=== PATIENT | male | born 1975 | race Hispanic/Latino ===

== ENCOUNTER 2019-01-25 09:07 | Outpatient (CLI) | payer MEDICARE | END 2019-01-25 09:08 | disposition home or self-care (01) | LOC: C.CTH 09:07 | DX: K40.91 Unilateral inguinal hernia, without obstruction or gangrene, recurrent (principal) ==

== ENCOUNTER 2019-01-30 08:23 | Day surgery (SDC) | payer MEDICARE ==
[2019-01-30] MEDS ORDERED: Bupivacaine 0.25% 20 ML INJ IJ ONE (11:07)
[2019-01-30] MEDS ORDERED: Midazolam 2 MG/2 ML VIAL ONE (11:08)
[2019-01-30] MEDS ORDERED: Lidocaine/Epinephrine 1% 1:100000 10 ML IJ ONE ×2 (11:08→11:52)
[2019-01-30] MEDS ORDERED: ceFAZolin 1 gm in NS 2 GM/200 ML BAG IVPB ONE (11:08)
[2019-01-30] MEDS ORDERED: Propofol 10 mg/ml Inj (20 ML) ONE (11:08)
[2019-01-30] MEDS ORDERED: Succinylcholine Chloride 20 mg/ml Syr (5 ml) IV ONE (11:08)
[2019-01-30] MEDS ORDERED: Rocuronium 10 mg/ml (5 ml) ONE ×2 (11:20→11:53)
[2019-01-30] MEDS ORDERED: Neostigmine 1:1000 (1 mg/ml) Inj ONE (12:05)
[2019-01-30] MEDS ORDERED: Esmolol 100 mg/10ml Inj IV ONE (12:55)
[2019-01-30] MEDS ORDERED: HYDROmorphone 0.5 mg/0.5 ml ISec IVP PRN (13:12)
[2019-01-30] MEDS ORDERED: Oxycodone/Acetaminophen 5/325 mg Tab PO PRN (13:12)
--- NOTE | 2019-01-30 13:12 | PCM.SURG1 ---
Surgeon's Initial Post Op Note - Surgeon's Notes Surgeon: Dr. Fritz Wilson Travel Clerk: Dr. Pascal PGY4, Aida COLEMAN Type of Anesthesia: General Endo, Local Pre-Operative Diagnosis: recurrent left inguinal hernia. umbilical hernia Operative Findings: intact prior direct inguinal hernia repair. indirect hernia, left. umbilical hernia 2cm Post-Operative Diagnosis: same Operation Performed: robotic assited left recurrent inguinal hernia repair with mesh. open primary umbilical hernia repair Specimen/Specimens Removed: inguinal preperitoneal fat. umbilical hernia contents Estimated Blood Loss: EBL {In ML}: 10 Blood Products Given: N/A Drains Used: No Drains Post-Op Condition: Good Date of Surgery/Procedure: 01/30/19 Time of Surgery/Procedure: 13:12
[2019-01-30 13:20] VITALS: BMI 38.4
[2019-01-30 15:14] VITALS: BP 133/74; PULSE 72; RESP 18; TEMP 98; O2SAT 100
--- NOTE | 2019-01-31 10:01 | PCM.OP ---
Operative Report - Operative Report Date of Surgery/Procedure: 01/30/19 Time of Surgery/Procedure: 11:15 Surgeon: Vlad Wilson MD Tactical Debriefer Officer: Rossana Pascal DO (PGY 4 resident); JARED Caal Anesthesia/Sedation: See main Pre-Operative Diagnosis: See main Post-Operative Diagnosis: See main Indication for Surgery: See main Operative Findings: Lef indirect inguinal hernia containing fat. Direct space with previously placed mesh plug intact. 1.5cm umbilical hernia containing fat Procedure/Operation Description: Anesthesia: General endotracheal; 1% lidocaine with epinephrine + 0.25% Marcaine 50/50 mix local anesthesia PRE-OPERATIVE DIAGNOSIS: left recurrent Inguinal hernia; Umbilical hernia. Obesity POST-OPERATIVE DIAGNOSIS: Left, indirect inguinal hernia; Umilical hernia, Obesity INDICATIONS FOR PROCEDURE: 44 year old male with a history of open left inguinal hernia repair done at an outside institution years prior who presented to my office with recurring pain symptoms in the left groin. Recurrent left inguinal hernia confirmed on CTAP. Further details of HPI in clinical chart. I have reviewed the risks and benefits of inguinal hernia repairs in detail as documented in the clinic chart. Specifically, we have noted the incidence of nerve, vascular, and bladder injury and hernia recurrence as well as chronic pain. The patient consented to the procedure following these discussions and prior to the operation. PROCEDURE PERFORMED 1) Laparoscopic, Robotic Assisted left Inguinal Hernia Repair (Transabdominal preperitoneal, JC procedure, Progrip mesh); 2) Primary Umbilical hernia repair DESCRIPTION OF PROCEDURE: The patient was given a preoperative dose of Ancef 2g 20 minutes before the incision. The patient had voided immediately prior to being brought to operating room and no martinez catheter was used. He was taken to the operating room and placed supine on the operating room table with both arms on padded armboard placed at patients side in neutral position. Following successful endotracheal intubation, abdominal hair removed with shaver and upper body warming blanket placed to maintain body temperature. Sequential compression stockings placed for DVT prophylaxis. A time out was performed prior to incision. The abdomen was prepped and draped in sterile fashion. Abdominal entry was gained using an 8mm optically viewing trocar with A 5mm 0-degree laparoscope placed in right upper quadrant. All layers of the abdominal wall were seen and peritoneal entry directly visualized. The abdomen was then insufflated with C02 pneumoperitoneum to 15mmhg. 5mm 0- degree laparoscope was then inserted and the abdomen was generally inspected. There were no signs of injury from initial entry and there was not found to be any additional signs of pathology. Two additional 8mm robot working ports were then placed under direct vision following injection of local anesthesia, 1 in the left upper abdomen at the level of the right sided port and the other in at the level of the umbilicus. Once these were inserted, the patient was placed in slight trendelberg. A face protecting foam was placed over the patient's face and the robot was docked to the patient. Robotic instruments were then inserted under direct visualization. A 0 degree robotic camera was inserted in the umbilical port, a fenestrated bipoar grasper was placed in the left lateral port, and monopolar curved scissors placed right sided port. The peritoneum was dissected down from the abdominal wall approximately 4 cm above the hernia defect. A peritoneal flap was created using a combination of blunt and electrocautey dissection posterior to the rectus muscle,from the left umbilical fold medially to the ASIS laterally. Dissection was carried down inferiorly in midline to pubis and space of retzius dissected. Laterally the space of bogros was dissected to psoas muscle. Identification of the epigastrics was completed and the hernia was noted to be indirect in nature, laterally to the vessels. THe direct space was also dissected free of fat and noted to be intact with previouslyplaced mesh from prior open repair. The hernial sac was gently reduced from the indirect space taking care not to injure or overly dissect the cord structures. The vas and vessels were kept together in natural bed. The edge of the hernial sac was identified and reduced far down off of the cord structures. Once this was completed, a Parietex Progrip inguinal mesh was placed into the preperitoneal space. It was placed over the myopectineal orifice with the inferior edge in front of all peritoneum and covering. The mesh is self- fixating and no tacks were used. Once this was completed, the lower edge of the mesh were ensured to be covering the peritoneal edge. The peritoneal flap was then closed usin running 2-0 v-loack barbed suture. The robot was then undocked from the patient and scrubbed back in at bedside. The ports were removed under direct vision and the abdomen desufflated. The midline port site skin incision was extended another 1 cm to address the umbilical hernia. The sac was ligated and fascial edges cleared. The defect was then closed with a total of four 0-PDS interrupted sutures. The skin incisions were closed with 4-0 monocryl sutures then dermabond applied to skin. Both testes was identified to be within the scrotum at the end of the case. The patient was extubated in the OR without incident and transferred to recovery in stable condition. I was present throughout the entirety of the case. Sponge, needle and instrument counts were correct. Estimated Blood Loss: 10mL Complications: none Specimen: Umbilical hernia sac; preperitoneal fat Discharge & Condition: See main
== END 2019-01-30 17:42 | disposition home or self-care (01) ==
LOC: C.SDS 08:23
PROVIDERS: ATTEND Surgery
DX: K40.90 Unilateral inguinal hernia, without obstruction or gangrene, not specified as recurrent (principal); K40.91 Unilateral inguinal hernia, without obstruction or gangrene, recurrent; K42.9 Umbilical hernia without obstruction or gangrene; E66.9 Obesity, unspecified; G89.29 Other chronic pain
CPT/HCPCS: 49651; 49652; 88302; 88305; C1781; J0690; J1170; J2250; J2405; J2704; J2710; J2765; J3010